=== PATIENT | female | born 1975 | race Caucasian/White ===

== ENCOUNTER 2020-12-16 08:46 | Emergency (ER) | payer OTHER ==
[2020-12-16 11:18] LABS: HEMOGLOBIN 13.5 gm/dl (12.3-15.3); RED BLOOD COUNT 4.29 M/UL (4.00-5.10); WHITE BLOOD COUNT 9.4 K/UL (4.5-11.0)
[2020-12-16 11:51] LABS: BUN/CREATININE RATIO 8 (0-10)
== END 2020-12-16 14:53 | disposition home or self-care (01) ==
LOC: ER1 08:46
PROVIDERS: Physician Assistant
DX: E04.9 Nontoxic goiter, unspecified (principal); J44.9 Chronic obstructive pulmonary disease, unspecified; Z90.49 Acquired absence of other specified parts of digestive tract
CPT/HCPCS: 70491; 80053; 84439; 84443; 85025; 99284; Q9967